=== PATIENT | female | born 1965 | race Caucasian/White ===

== ENCOUNTER 2020-12-31 15:18 | Inpatient (IN) | payer OTHER ==
[~2020-12-31] VITALS: Ht 165.1 cm; Wt 93.5 kg
--- NOTE | 2021-01-03 18:20 | PATH ---
[facility] [address] [place], [place] [address] Signed SPECIMEN(S): A APPENDIX SPECIMEN SOURCE: A. APPENDIX CLINICAL HISTORY: Acute appendicitis. FINAL PATHOLOGIC DIAGNOSIS: Appendix, appendectomy: - Severe acute appendicitis with perforation, appendiceal wall necrosis, and abscess formation. MICROSCOPIC EXAMINATION: Histologic sections of all submitted blocks are examined by light microscopy. These findings, together with the gross examination, support the pathologic diagnosis. GROSS DESCRIPTION: The specimen, labeled "RH, A.," and designated on the requisition "appendix," is received in formalin and consists of Specimen: Disrupted appendix with mesoappendix. Dimensions: 6.8 x 5.5 cm in aggregate including detached proximal margin section measuring 3.5 x 1.4 cm. Serosa: Disrupted/opened and containing green, ragged material with areas of induration. Perforation: There is a 6.0 cm serosal perforation measuring less than 1.0 cm from stapled margin and involving 90% of specimen. Inking: Staple line is inked black. Mucosa: Peoples and green with possible devitalized tissue; partial thickened areas. Fecalith: Two brown-green fecaliths measuring 1.3 x 0.6 x 0.5 cm in aggregate. Additional: Cut surface reveals collapsed appendiceal structure measuring up to 1.5 cm in diameter; mesoappendix containing a 2.0 cm ragged, hemorrhagic area located up to 0.7 cm to appendiceal serosa and approximately 4.0 cm from proximal margin (difficult to discern due to specimen condition. Water Supervisor sections are submitted as follows: (A1) Appendix with inked proximal margin (A2) Perforated appendix (two sections, one bisected) PATIENT NAME: SRINIVAS ALATORRE PATHOLOGY DATE OF : 65 REPORT #: [id number] PHYSICIAN: SANAM BIRCH PCP: NO PRIMARY CARE PHYSICIAN REPORT IS CONFIDENTIAL AND NOT TO BE RELEASED WITHOUT AUTHORIZATION [facility] [address] [place] [id number] Signed (A3) Perforated appendix and ragged hemorrhagic mesoappendix (A4-A6) Distal tip, trisected longitudinally. AT (under the direct supervision of a pathologist) The Gross Description was prepared using a voice recognition system. The report was reviewed for accuracy; however, sound-alike word errors, addition and/or deletions may occur. If there is any question about this report, please contact Client Services. PERFORMING LABORATORY: The technical component was performed by [facility], [address] [place] [id number] (Liner Checker: Callie Wooten MD; CLIA# [id number]). [facility], [address] [place] [id number] (CLIA# [id number]). Diagnostician: Janie Daniels MD Pathologist Electronically Signed 01/03/2021 Copies: ~ PATIENT NAME: SRINIVAS ALATORRE PATHOLOGY DATE OF : 65 REPORT #: [id number] PHYSICIAN: SANAM BIRCH PCP: NO PRIMARY CARE PHYSICIAN REPORT IS CONFIDENTIAL AND NOT TO BE RELEASED WITHOUT AUTHORIZATION
[2021-01-04] MEDS ORDERED: METRONIDAZOLE250 MG PO (15:28)
[2021-01-04] MEDS ORDERED: IBUPROFEN600 MG PO (15:28)
[2021-01-04] MEDS ORDERED: ACETAMINOPHEN500 MG PO (15:28)
[2021-01-04] MEDS ORDERED: CIPROFLOXACIN500 MG PO (15:28)
[2021-01-04] MEDS ORDERED: DIFLUCAN200 MG PO (16:05)
--- NOTE | 2021-01-06 10:51 | DS ---
[facility] [address] [place], [place] [address] Signed ADMISSION DATE: 12/31/2020 DISCHARGE DATE: 01/04/2021 REASON FOR ADMISSION: This 55-year-old white woman is in generally good health, but presents to the emergency room, was unable to tolerate any more pain which was located in the right lower abdomen. She began having symptoms on Friday (day of admission, Friday). This was associated with profound and persistent ongoing nausea and vomiting. White count showed elevation of 17.5. Abdominal examination showed peritonitis including tenderness in the right lower quadrant. A CT scan showed marked inflammatory process in the right lower quadrant. The appendix was not visualized. There was free air and free fluid. The diagnosis of intraabdominal abscess and probable perforated appendix or other hollow viscus was made. PERTINENT PHYSICAL EXAMINATION: GENERAL: Pleasant white woman, who showed a pulse of 102, blood pressure 124/86, and O2 saturation 99% on room air. NECK: Normal. CHEST: Clear. HEART: Regular without murmur. ABDOMEN: Nondistended. There is diffuse tenderness throughout most of in the right lower quadrant and additionally in the left lower abdomen consistent with positive Rovsing sign. LABORATORY STUDIES: Showed a white count of 17.5, creatinine 1.10, glucose 144, potassium 3.0, sodium 126. Lactic acid level was not obtained. HOSPITAL COURSE: Given the generalized peritonitis and probability of perforated viscus, she underwent laparoscopic evaluation promptly after fluid resuscitation the evening of admission. She was found to have an intraabdominal abscess in the lower abdomen with interloop abscesses mixed within small bowel loops, which was complex and consistent with her CT findings. Ultimately, she was found to have perforated appendicitis as the etiology of her intraabdominal abscess. A drain was placed after copious irrigation of the abdomen and clearance of the abscess and appendectomy. Postoperatively, she felt quite a bit better right away. She was maintained on broad-spectrum antibiotic meropenem. She was allowed clear liquids and advanced as tolerated, thereafter. She was transitioned to Cipro and Flagyl orally administered and by day of discharge, she is ambulating well. The drain that was placed has cleared Electronically Signed By: BARBIE CAMPBELL MD 01/06/21 1051 PATIENT NAME: SRINIVAS ALATORRE DISCHARGE SUMMARY DATE OF : 65 REPORT #: [id number] PHYSICIAN: BARBIE CAMPBELL MD PCP: NO PRIMARY CARE PHYSICIAN REPORT IS CONFIDENTIAL AND NOT TO BE RELEASED WITHOUT AUTHORIZATION [facility] [address] [place] [address] Signed entirely and has been removed anticipating 5 days of Cipro and Flagyl antibiotic. She is to avoid lifting more than 20 pounds for the next 2 weeks. We will see her back in 4 to 6 weeks in the office. Steri-Strips will be left in place. She is permitted to shower. She should lift no more than 20 pounds for 2 weeks. DISCHARGE DIAGNOSES: 1. Intraabdominal abscess complex including interloop bowel abscess with severe peritonitis. 2. Perforated appendicitis, status post laparoscopy with laparoscopic drainage of the abdominal abscess and laparoscopic appendectomy and placement of drain. DISCHARGE MEDICATIONS: Cipro 500 mg p.o. b.i.d. #10, Flagyl 250 mg p.o. t.i.d. #15, ibuprofen 600 mg p.o. q.6 hours as needed for pain #60, Tylenol 500 mg two tablets p.o. q.6 hours p.r.n. pain #60. MD IGLESIA Lee/MODL /[id number] cc: DR. BARBIE HUITRON Copies: ~ Electronically Signed By: BARBIE CAMPBELL MD 01/06/21 1051 PATIENT NAME: SRINIVAS ALATORRE DISCHARGE SUMMARY DATE OF : 65 REPORT #: [id number] PHYSICIAN: BARBIE CAMPBELL MD PCP: NO PRIMARY CARE PHYSICIAN REPORT IS CONFIDENTIAL AND NOT TO BE RELEASED WITHOUT AUTHORIZATION
--- NOTE | 2021-01-06 10:51 | OR ---
[facility] [address] [place], [place] [address] Signed DATE OF OPERATION: 12/31/2020 SURGEON: Barbie Campbell MD PREOPERATIVE DIAGNOSES: Acute abdomen, perforated viscus on CT scan, palpable mass right lower abdomen. POSTOPERATIVE DIAGNOSES: 1. Intraabdominal abscesses (complex with generalized peritonitis). 2. Perforated appendicitis. PROCEDURES: 1. Laparoscopy with laparoscopic drainage of intraabdominal abscess and collection of abscess fluid; peritoneal lavage and separation of multiple loops of small bowel. 2. Appendectomy with retrieval of multiple free fecaliths. ANESTHESIA: General endotracheal, Francisco Valeria, COMPUTER MECHANIC and local 30 mL of 0.25% Marcaine. INDICATION: This 55-year-old woman began having vague abdominal pain on Friday (today is Friday), culminated in the emergency room visit this afternoon where she was evaluated by Dr. Liu and found to have marked tenderness in the right lower abdomen and elevated white count. A CT scan was performed, which showed impressive inflammatory changes in the right lower quadrant. The appendix itself could not be identified, but there was free localized intraperitoneal air fluid and findings suggestive of abscess and probable perforated viscus of uncertain type. She has been fluid resuscitated, given intravenous antibiotics and is now to undergo a laparoscopy with probable drainage of abscess and other indicated procedures as able and indicated. She understands that a laparotomy may be required for operation. She understands and she wished to proceed. FINDINGS: She had matted small bowel loops with interloop abscesses as well as a retroperitoneal pericecal abscess and well-formed abscess cavity related to perforated appendicitis. Breakdown of all loculations and irrigation of the abdomen and freeing of the bowel loops was accomplished and complete appendectomy was undertaken as well. This required a piecemeal excision in two major portions of the appendix which was perforated and with free fecaliths in the bed of the abscess. These were retrieved entirely. By conclusion of operation, the abdomen was once again soft. Bowel loops were completely freed up and clear fluid is noted. Electronically Signed By: BARBIE CAMPBELL MD 01/06/21 1051 PATIENT NAME: SRINIVAS ALATORRE OPERATIVE REPORT DATE OF : 65 REPORT #: [id number] PHYSICIAN: BARBIE CAMPBELL MD PCP: NO PRIMARY CARE PHYSICIAN REPORT IS CONFIDENTIAL AND NOT TO BE RELEASED WITHOUT AUTHORIZATION [facility] [address] [place], [place] [address] Signed Other than fluid level and severe inflammation of the small bowel, there were no other findings and the liver itself appeared normal. DESCRIPTION OF PROCEDURE: The patient was brought to the operating room, given a general endotracheal anesthetic. Preoperative antibiotic meropenem had been given. Sequential compression device stockings were used and heparin subcutaneously administered. After satisfactory general endotracheal anesthesia, the abdomen was prepared with a chlorhexidine solution and draped sterilely. A Montague catheter had been placed as well. Palpation on the relaxed abdomen showed a definite mass that is quite large in the right lower abdomen consistent with abscess. An infraumbilical incision was made and using an open Akin cannula technique, the abdomen entered and pneumoperitoneum achieved to a level of 14 mmHg of carbon dioxide gas. Intraabdominal inspection showed matted small bowel loops with fibrinous peel adhesing them together. The omentum was draped over this largely. An epigastric 12 mm port was placed and the camera replaced to that site. Single hand manipulation with a bowel grasper allowed for separation of omental adhesions and creation of a plane between the abdominal wall laterally and the small bowel loops immediately producing copious amounts of thick purulent material. A midline 5 mm trocar was promptly placed allowing for two-hand manipulation and ultimately suctioning of the abscess cavity. A Luki tube was used to collect a specimen for Gram stain and culture. With two hand manipulation, small bowel loops were gently freed from each other demonstrating fibrinous peel between loops and some areas of purulent material. Irrigation was undertaken as necessary. The cecum was nearly non-distinguishable from small bowel loops locally noted, however, ultimately this was able to be done and ultimately the appendix which was markedly inflamed as was the surrounding small bowel and colon identified. This was freed from the surrounding tissue and there was a well-formed abscess cavity between the cecum and small bowel and abdominal wall laterally. The appendix was quite obviously perforated and the source of the underlying intraabdominal abscess. With gentle manipulation, the lowest part of the appendix, which was mushy and obviously necrotic, was transected with a stapling device. The specimen was passed for pathology as portion of the appendix. Further manipulation of other bowel loops was undertaken gently them free and irrigating copiously. Ultimately, a better view of the base of the appendix was identified and with various manipulations, the terminal ileum as noted by the antimesenteric fat pad of Treves was identified. This allowed better visualization into the area of the abscess cavity identifying a remnant of appendix not yet transected. By following the tinea epiploica to this area, it was affirmed that there was indeed some appendiceal stump and although not much certainly enough to allow for recurrent appendicitis in the future. On that basis, a window was created between the appendix and the cecum and an Endo BAKARI stapling device was used to Electronically Signed By: BARBIE CAMPBELL MD 01/06/21 1051 PATIENT NAME: SRINIVAS ALATORRE OPERATIVE REPORT DATE OF : 65 REPORT #: [id number] PHYSICIAN: BARBIE CAMPBELL MD PCP: NO PRIMARY CARE PHYSICIAN REPORT IS CONFIDENTIAL AND NOT TO BE RELEASED WITHOUT AUTHORIZATION [facility] [address] [place], [place] [address] Signed transect the true base of the appendix flushed with the cecum. The mesenteric aspect of the mesoappendix was transected with a stapling device as well. This was passed for pathology as well. An endobag had been used to extract the bulk of the appendix. There were free fecaliths in this area. These were gently withdrawn and removed completely. Copious irrigation was then undertaken throughout including in the pelvis. The small bowel was carefully manipulated running in a retrograde fashion from the ileocecal valve more proximally ascertaining that all of the interloop abscesses were completely drained and freed up. Approximately 6 L of fluid was used for irrigation throughout the course of operation. Through the low midline 5 mm trocar, a 7 mm flat Conrad drain was placed into the area of the abscess cavity and extended laterally near the pelvic wall where well-formed abscess wall was noted. The epigastric trocar site was removed under direct visualization. Trocar site showing no sign of bleeding. The Akin cannula was removed and the midline fascia reapproximated with interrupted 0 Vicryl suture. The skin was closed in each area with interrupted 3-0 Vicryl after application of 30 mL of 0.25% Marcaine. Steri-Strips were applied. The patient was ultimately extubated and transferred to the recovery room in good condition having suffered no complication. The operation was rather prolonged, complicated, and difficult due to multiple intraabdominal abscesses that was accomplished safely and with good benefit. Notably at conclusion, there was no palpable mass in the right lower abdomen related to the of small bowel related to interloop abscess. Barbie Campbell MD JM/MODL /[id number] cc: Dr. Barbie Liu Copies: Electronically Signed By: BARBIE CAMPBELL MD 01/06/211050 PATIENT NAME: LANDRYSRINIVAS OPERATIVE REPORT DATE OF : 65 REPORT #: [id number] PHYSICIAN: BARBIE CAMPBELL MD PCP: NO PRIMARY CARE PHYSICIAN REPORT IS CONFIDENTIAL AND NOT TO BE RELEASED WITHOUT AUTHORIZATION [facility] [address] [place] [address] [place], [place] [address] Signed ~ Electronically Signed By: BARBIE CAMPBELL MD 01/06/21 105 PATIENT NAME: SRINIVAS ALATORRE OPERATIVE REPORT DATE OF : 65 REPORT #: [id number] PHYSICIAN: BARBIE CAMPBELL MD PCP: NO PRIMARY CARE PHYSICIAN REPORT IS CONFIDENTIAL AND NOT TO BE RELEASED WITHOUT AUTHORIZATION
--- NOTE | 2021-01-06 10:51 | HP ---
[facility] [address] [place], [place] [address] Signed ADMISSION DATE: 12/31/2020 REASON FOR ADMISSION: Acute abdomen, right lower abdominal inflammatory process, intraabdominal abscess, possible perforated appendicitis. HISTORY OF PRESENT ILLNESS: This 55-year-old white woman is in generally good health. She presented to the emergency room today having been unable to tolerate any more pain, which had become generalized and most dominantly in the right lower abdomen. She had pain symptoms starting on Friday (today is Friday). She has had associated persistent and ongoing nausea and vomiting as well as right lower abdominal pain. Her evaluation by Dr. Finley in the emergency room included CBC showing white count of 17.5, and an abdominal and pelvic CT scan showing marked inflammatory process in the right lower quadrant. The appendix was not visualized as a separate organ, but there is considered an abscess present with fluid, extraluminal gas measuring approximately 8 cm. The cecum was mildly thick walled and fluid-filled. There were adjacent small bowel segments with significant inflammation as well. I reviewed the CT scan and those findings are certainly well confirmed. I see no evidence of the appendix proper either. Notably, she has not undergone appendectomy. Her past surgical history does include laparoscopic cholecystectomy in the past. She is in generally good health, taking no medications for chronic disorders. She is considered to be postmenopausal for the past two years, though episodically does have some minimal uterine bleeding. She notes that she has some bleeding when she strains down. She has recently been working on home projects, which has caused more bleeding. Her bleeding more or less has been for three weeks, but it is difficult to associated with her current findings. Of note, the pelvic organs on the CT scan were unremarkable. REVIEW OF SYSTEMS: She denies any shortness of breath or chest pain particularly. She does have generalized abdominal pain. Pain most dominantly in the right lower quadrant. The patient has dry mouth and thirsty. SOCIAL HISTORY: She is . Her accompanies her at this time. Her daughter underwent operation by me in the past she tells me, this included cholecystectomy. PHYSICAL EXAMINATION: GENERAL: Pleasant white woman, who does not look systemically toxic at the moment of Electronically Signed By: BARBIE CAMPBELL MD 01/06/21 1051 PATIENT NAME: SRINIVAS ALATORRE HISTORY AND PHYSICAL DATE OF : 65 REPORT #: [id number] PHYSICIAN: BARBIE CAMPBELL MD PCP: NO PRIMARY CARE PHYSICIAN REPORT IS CONFIDENTIAL AND NOT TO BE RELEASED WITHOUT AUTHORIZATION [facility] [address] [place], [place] [address] Signed presentation. VITAL SIGNS: Showed pulse of 102, blood pressure 124/86, O2 saturation 99% on room air. Current vital signs at 06:00 p.m. showed pulse of 106, respirations 20, blood pressure 145/82, and pulse oximetry 100% on room air. NECK: Trachea is midline. CHEST: Clear. HEART: Regular, without murmur. ABDOMEN: Nondistended. There is diffuse tenderness throughout, most dominantly in the right lower quadrant, additionally in the left lower abdomen. EXTREMITIES: Show no clubbing, cyanosis, or edema. LABORATORY STUDIES: Showed white count of 17.5, hematocrit 45.3, and platelets 375,000. Chem-profile shows sodium of 126, potassium of 3.0, creatinine of 1.10, glucose 144, and bilirubin 1.1. Liver enzymes normal. Lactic acid level not obtained apparently. COVID test obtained, results were pending. IMAGING DATA: CT scan findings described an intense inflammatory process in the right lower quadrant with fluid and extraluminal gas measuring 8 cm with a thick-walled cecum, which is fluid-filled numerous diverticula. Urinary bladder and manager corporate responsibility organs are normal. ASSESSMENT: The patient has an abscess, extraluminal air and significant peritonitis. She does not have systemic toxicity (yet). Fluid resuscitation is underway and broad-spectrum antibiotic will be administered. Consideration should be made for laparoscopy with drainage of abscess and/or other interventions. This may still require an open operation including midline pelvic laparotomy. Discussed this with the patient and her in great detail and they understand. She needs additional fluids before proceeding to the operating room and we will initiate these interventions. As regard to uterine bleeding, I think it unlikely related to her current situation that may bear further evaluation in the future. Notably, she does not currently have a child support agent and that will have to be organized likely. The special risks of operation in her case include the risks of bleeding, infection, need for partial or complete bowel resection, possible need for an abbreviated procedure to include only abscess drainage with interval appendectomy or other intervention. She understands this and agrees to proceed. Electronically Signed By: BARBIE CAMPBELL MD 01/06/21 1051 PATIENT NAME: SRINIVAS ALATORRE HISTORY AND PHYSICAL DATE OF : 65 REPORT #: [id number] PHYSICIAN: BARBIE CAMPBELL MD PCP: NO PRIMARY CARE PHYSICIAN REPORT IS CONFIDENTIAL AND NOT TO BE RELEASED WITHOUT AUTHORIZATION [address] [address] Signed MD IGLESIA Lee/MODL /[id number] Copies: ~ Electronically Signed By: BARBIE CAMPBELL MD 01/06/21 1051 PATIENT NAME: SRINIVAS ALATORRE HISTORY AND PHYSICAL DATE OF : 65 REPORT #: [id number] PHYSICIAN: BARBIE CAMPBELL MD PCP: NO PRIMARY CARE PHYSICIAN REPORT IS CONFIDENTIAL AND NOT TO BE RELEASED WITHOUT AUTHORIZATION
== END 2021-01-04 17:48 | disposition home or self-care (01) | DRG 340 ==
LOC: ED 15:18 → MS 18:17
PROVIDERS: ADMIT Surgery; ATTEND Surgery
PROC: 0W9G4ZZ Drainage of Peritoneal Cavity, Percutaneous Endoscopic Approach (ICD-10-PCS; 2020-12-31)
PROC: 3E1M38Z Irrigation of Peritoneal Cavity using Irrigating Substance, Percutaneous Approach (ICD-10-PCS; 2020-12-31)
PROC: 0DTJ4ZZ Resection of Appendix, Percutaneous Endoscopic Approach (ICD-10-PCS; principal; 2020-12-31 20:30)
DX: K35.21 Acute appendicitis with generalized peritonitis, with abscess (principal); K56.41 Fecal impaction; N95.0 Postmenopausal bleeding; Z20.822 Contact with and (suspected) exposure to COVID-19
CPT/HCPCS: 00840; 36415; 74177; 80048; 80053; 83735; 85025; 87070; 87075; 87077; 87186; 87205; 94760; 99285-25; C9803; J0780; J1100; J1170; J1200; J1644; J1790; J1885; J2001; J2185; J2370; J2405; J2704; J3010; J7030; J7121; Q9967; U0003